=== PATIENT | female | born 1985 ===

== ENCOUNTER 2022-05-20 17:11 | Emergency (ER) | payer SELFPAY ==
[~2022-05-20] VITALS: Ht 167.6 cm; Wt 60.9 kg
[2022-05-20 20:13] VITALS: BP 90/56
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
[2022-05-21] MEDS ORDERED: PNV1TABL87 PO (12:18)
[2022-05-21] MEDS ORDERED: CEPH500C2 PO (13:29)
== END 2022-05-20 20:15 | disposition home or self-care (01) ==
LOC: ER 17:13
DX: O9A.211 Injury, poisoning and certain other consequences of external causes complicating pregnancy, first trimester (principal); Y04.8XXA Assault by other bodily force, initial encounter; Y93.89 Activity, other specified; Y92.89 Other specified places as the place of occurrence of the external cause; Y99.8 Other external cause status
CPT/HCPCS: 99281

== ENCOUNTER 2022-05-21 10:14 | Emergency (ER) | payer SELFPAY ==
[~2022-05-21] VITALS: Ht 167.6 cm; Wt 60.9 kg
[2022-05-21 10:26] VITALS: BP 110/75
[2022-05-21] MEDS ORDERED: PNV1TABL87 PO (12:18)
[2022-05-21 12:23] LABS: CLARITY,URINE SLIGHTLY CLOUDY (Clear); COLOR,URINE YELLOW (Yellow); GLUCOSE, URINE NEGATIVE (Neg); KETONES,URINE NEGATIVE (Neg); LEUKOCYTE ESTERASE ,URINE TRACE (Neg); NITRITES, URINE NEGATIVE (Neg); OCCULT BLOOD,URINE NEGATIVE (Neg); PROTEIN,URINE NEGATIVE (Neg); UROBILINOGEN,URINE 0.2 E.U/dL (0.2-1.0)
[2022-05-21 12:55] LABS: MUCUS STRANDS MANY /LPF (Neg); SQUAMOUS EPITHELIAL CELL,UR MANY /LPF (FEW); UA COLLECTION TYPE CLN CATCH MIDSTREAM
[2022-05-21 12:56] LABS: BACTERIA,URINE 2+ /HPF (Neg); RBC,URINE 0-2 /HPF (0-2)
[2022-05-21] MEDS ORDERED: cephalexin 250mg capsule PO ONE (13:25)
[2022-05-21] MEDS ORDERED: CEPH500C2 PO (13:29)
== END 2022-05-21 13:44 | disposition home or self-care (01) ==
LOC: ER 10:14
DX: Z34.92 Encounter for supervision of normal pregnancy, unspecified, second trimester (principal); Z88.0 Allergy status to penicillin
CPT/HCPCS: 76805; 81001; 99284